=== PATIENT | male | born 1975 | race African-American/Black ===

== ENCOUNTER → 2020-02-17 | Outpatient (CLI) | payer OTHER ==
[2019-12-07 14:34] VITALS: BP 141/98
[~2020-02-17] MED LIST: ATOR20TA58 PO; HYDR-2769 PO; LEVO137T3 PO; METH4TAB2 PO; NICO1PAT21 TP; VARE0.5T PO; ZOLPIDEM 5 MG TABLET. ONE; ZOLPIDEM 5 MG TABLET. PO ONE; [UNRECOGNIZED DRUG - CODE] SQ; bystolic
--- NOTE | 2020-02-18 10:31 | SLEEP ---
DATE OF STUDY: 02/17/2020 SLEEP STUDY ATTENDING PHYSICIAN: Dr. Rishabh Buenrostro. The patient is 44-year-old who weighs 225 pounds with a BMI of 33. The patient's [place] score was 1. The patient underwent diagnostic sleep study performed at [facility]. During the night of the study, the patient spent 402 minutes in bed and slept for 314 minutes with a sleep efficiency of 78%. Sleep latency was 62 minutes with a REM latency of 69 minutes. Sleep architecture showed increased stage 1 and stage 2 sleep, normal slow wave and reduced REM sleep, which was 12% of total sleep time. During the night of the study, the patient had 5 obstructive apneas, no mixed or central apneas and 11 hypopneas. The patient's AHI for the entire night was 3 per hour with a supine AHI of 2 per hour and a REM AHI of 6 per hour. No clinically significant PLM seen. EKG monitoring revealed no arrhythmias. He was in normal sinus rhythm. No clinically significant nocturnal hypoxia observed. Due to low AHI, the patient did not meet the split night criteria for CPAP initiation. IMPRESSION: 1. No clinically significant sleep disorder breathing. The patient's AHI for the entire night was 3 per hour. 2. No clinically significant nocturnal hypoxia. 3. No clinically significant periodic limb movements. RECOMMENDATIONS: 1. The patient did not meet the criteria for CPAP initiation due to low AHI. 2. Weight loss to the ideal body weight is recommended. 3. Avoid EXPLOITATION ANALYST depressants. ROBIN MONTALVO MD DR: DENNIS/zena JOB#: [id number] / [id number] Skyler Coyne MD
== END ==
LOC: SLPLAB 19:02
PROVIDERS: ATTEND Family Medicine
DX: R06.81 Apnea, not elsewhere classified (principal)
CPT/HCPCS: 95810

== ENCOUNTER 2020-07-15 23:57 | Emergency (ER) | payer OTHER ==
[~2020-07-15] VITALS: Ht 175.3 cm; Wt 92.7 kg
[~2020-07-15 23:57] MED LIST changes: -METH4TAB2 PO; -ZOLPIDEM 5 MG TABLET. ONE; -ZOLPIDEM 5 MG TABLET. PO ONE
[2020-07-16 00:34] VITALS: BP 131/72
--- NOTE | 2020-07-16 00:38 | ED.ADGEN ---
Past Medical History Past Medical History: A-Fib, Hypertension Past Surgical History: No Surgical History Smoking Status: Current Every Day Smoker Alcohol Use: Occasionally General Adult EDM: Chief Complaint: PAIN CONTROL HPI: HPI: Patient is a 44 year old male coming in for his RA flareup. Patient states he stopped taking his provoked because he was required to get his COVID-19 vaccination in 3 days. States he had some refraction past that he smells like steroids for. Patient denies any other complaints and is requesting some steroids to help going to this flareup over the holiday weekend. Review of Systems: Review of Systems: All other systems within normal limits except for as noted in the HPI Current Medications: Current Medications Medications (Trade) Dose Ordered Sig/Mihaela Start Time Stop Time Status Last Admin Dose Admin Dexamethasone Sodium Phosphate (Decadron) 10 mg 1X ONCE 07/16/20 00:45 07/16/20 00:46 DC Allergies: Allergies: Allergies Coded Allergies Type Severity Reaction Last Updated Verified phenobarbital Allergy Unknown Unknown 12/07/19 Yes Physical Exam: PE: Constitutional: Well developed, well nourished, no acute distress, non-toxic appearance. [] HENT: Normocephalic, atraumatic, bilateral external ears normal, nose normal. [] Eyes: PERRLA, conjunctiva normal, no discharge. [] Neck: No rigidity, supple, no stridor. [] Cardiovascular: Regular rate and rhythm, brisk cap refill [] Lungs & Thorax: Non labored symmetric respirations, no tachypnea or respiratory distress [] Abdomen: Soft, nondistended. Skin: Warm, dry, no erythema, no rash. [] Back: Unremarkable Extremities: No deformities, range of motion grossly intact, no lower extremity edema [] Neurologic: Alert and oriented X 3, no focal deficits noted. [] Psychologic: Affect normal, judgement normal, mood normal. [] Current Patient Data: Vital Signs: Vital Signs Date Time Temp Pulse Resp B/P (MAP) Pulse Ox O2 Delivery O2 Flow Rate FiO2 07/16/20 00:34 98.3 80 18 131/72 (91) 97 Room Air 98.3 EKG: EKG: [] Heart Score: C/O Chest Pain: No Risk Factors: Risk Factors: DM, Current or recent (<one month) smoker, HTN, HLP, family history of CAD, obesity. Risk Scores: Score 0 - 3: 2.5% MACE over next 6 weeks - Discharge Home Score 4 - 6: 20.3% MACE over next 6 weeks - Admit for Clinical Observation Score 7 - 10: 72.7% MACE over next 6 weeks - Early Invasive Strategies Radiology/Procedures: Radiology/Procedures: [] Course & Med Decision Making: Course & Med Decision Making Pertinent Labs and Imaging studies reviewed. (See chart for details) [] Dragon Disclaimer: Dragon Disclaimer: This electronic medical record was generated, in whole or in part, using a voice recognition dictation system. Departure Departure Impression: Primary Impression: Rheumatoid arthritis flare Disposition: HOME / SELF CARE / HOMELESS Condition: STABLE Referrals: Skyler COLEMAN MD (PCP) Patient Instructions: Rheumatoid Arthritis Scripts Methylprednisolone (MEDROL) 4 Mg Tab.ds.pk 1 PKG PO UD for inflammation, #1 PKG Prov: LINDA SINGH MD 07/16/20 LINDA SINGH MD July 16, 2020 00:38
[2020-07-16] MEDS ORDERED: DEXAMETHASONE SOD PHOS 20 MG/5 ML VIAL. IM ONE (00:45)
[2020-07-16] MEDS ORDERED: METH4TAB2 PO (00:56)
== END 2020-07-16 01:02 | disposition home or self-care (01) ==
LOC: ER 23:57
DX: M06.9 Rheumatoid arthritis, unspecified (principal); I48.91 Unspecified atrial fibrillation; I10 Essential (primary) hypertension; F17.200 Nicotine dependence, unspecified, uncomplicated; Z88.8 Allergy status to other drugs, medicaments and biological substances
CPT/HCPCS: 96372; 99283; J1100

== ENCOUNTER 2020-12-15 02:02 | Emergency (ER) | payer OTHER ==
[~2020-12-15] VITALS: Ht 175.3 cm; Wt 100.0 kg
[~2020-12-15 02:02] MED LIST changes: +METH4TAB2 PO
[2020-12-15 02:50] VITALS: BP 149/93
[2020-12-15] MEDS ORDERED: PRED50TA PO (03:18)
--- NOTE | 2020-12-15 03:20 | PHYS DOC ---
Past Medical History Past Medical History: A-Fib, Hypertension, Other Additional Past Medical Histor: RA Past Surgical History: Other Additional Past Surgical Histo: R ANKLE Smoking Status: Current Every Day Smoker Alcohol Use: Sober General Adult HPI: HPI: Patient is a 45 year old male with history of rheumatoid arthritis on RINVOQ ( Upadacitinib) who presents with what he believes is a rheumatoid arthritis flare. States that he has increasing pain in his right ankle, right hip, and right shoulder that have all been present for the past 2 days. Has been taking his hydrocodone 5 mg as needed, without help. States that his only DMARD is listed as above. His formulator Dr. Knox. He has not called their office to discuss this flare as of yet. States that he has had steroids for flares in the past. Denies any fevers. States he felt chilled once, but was sleeping with the window open. Review of Systems: Review of Systems: Constitutional: Denies fever or chills. [] Eyes: Denies change in visual acuity. [] HENT: Denies nasal congestion or sore throat. [] Respiratory: Denies cough or shortness of breath. [] Cardiovascular: Denies chest pain or edema. [] GI: Denies abdominal pain, nausea, vomiting, bloody stools or diarrhea. [] : Denies dysuria. [] Musculoskeletal: Reports joint pain in multiple joints. Integument: Denies rash. [] Neurologic: Denies headache, focal weakness or sensory changes. [] Endocrine: Denies polyuria or polydipsia. [] Lymphatic: Denies swollen glands. [] Psychiatric: Denies depression or anxiety. [] Heart Score: C/O Chest Pain: No Risk Factors: Risk Factors: DM, Current or recent (<one month) smoker, HTN, HLP, family history of CAD, obesity. Risk Scores: Score 0 - 3: 2.5% MACE over next 6 weeks - Discharge Home Score 4 - 6: 20.3% MACE over next 6 weeks - Admit for Clinical Observation Score 7 - 10: 72.7% MACE over next 6 weeks - Early Invasive Strategies Allergies: Allergies: Allergies Coded Allergies Type Severity Reaction Last Updated Verified phenobarbital Allergy Unknown Unknown 12/07/19 Yes Physical Exam: PE: Constitutional: Well-appearing, no acute distress. HENT: Normocephalic, atraumatic Eyesconjunctiva normal, no discharge. [] Neck: Normal range of motion, no tenderness, supple, no stridor. [] Cardiovascular:Heart rate regular rhythm, no murmur [] Lungs & Thorax: Bilateral breath sounds clear to auscultation [] Skin: Warm, dry, no erythema, no rash. [] Back: No tenderness, no CVA tenderness. [] Extremities: Right shoulder, right hip, and right ankle all with tenderness with passive and active range of motion. Mild warmth over the ankle and the shoulder. No overlying skin changes/erythema. Neurologic: Alert and oriented X 3, normal motor function, normal sensory function, no focal deficits noted. [] Psychologic: Affect normal, judgement normal, mood normal. [] EKG: EKG: [] Radiology/Procedures: Radiology/Procedures: [] Course & Med Decision Making: Course & Med Decision Making Pertinent Labs and Imaging studies reviewed. (See chart for details) Patient 45-year-old male with history of rheumatoid arthritis on Upadacitinib presenting with concerns for rheumatoid arthritis flare. He has increasing pain in his right ankle, right groin, right shoulder states that it is consistent with previous arthritis flares. He is asking for a steroid Depo shot. I will prescribe him a 5-day course of prednisone and given the first dose in the emergency department as well as a single dose of oxycodone. I expressed the importance that he follows up with his formulator and his PCP tomorrow. Savage Disclaimer: Savage Disclaimer: This electronic medical record was generated, in whole or in part, using a voice recognition dictation system. Departure Departure Impression: Primary Impression: Rheumatoid arthritis flare Disposition: 01 HOME / SELF CARE / HOMELESS Condition: STABLE Referrals: Skyler COLEMAN MD (PCP) Call tomorrow to set up a follow-up appointment. Additional Instructions: Please call your primary care doctor as well as your formulator tomorrow to tell them you are in the emergency department. Please tell them that you were given a prescription for prednisone. They may wish to change these medications as you follow-up. Please take the prednisone unless directed otherwise by your outpatient doctors. Please continue to use your hydrocodone as prescribed. If you develop high fevers, shaking chills, or other new/concerning symptoms please return to the emergency department for reevaluation peer Scripts Prednisone (PREDNISONE) 50 Mg Tablet 1 TAB PO DAILY, #5 TAB 0 Refills Prov: RICHIE AREVALO MD 12/15/20 RICHIE AREVALO MD Dec 15, 2020 03:20
[2020-12-15] MEDS ORDERED: oxyCODONE IR 5 MG TABLET PO ONE (03:30)
[2020-12-15] MEDS ORDERED: predniSONE 10 MG TABLET PO ONE (03:30)
== END 2020-12-16 03:55 | disposition home or self-care (01) ==
LOC: ER 02:02
DX: M06.811 Other specified rheumatoid arthritis, right shoulder (principal); M06.851 Other specified rheumatoid arthritis, right hip; M06.871 Other specified rheumatoid arthritis, right ankle and foot; I48.91 Unspecified atrial fibrillation; I10 Essential (primary) hypertension; F17.200 Nicotine dependence, unspecified, uncomplicated; Z88.8 Allergy status to other drugs, medicaments and biological substances
CPT/HCPCS: 99283; J7512